=== PATIENT | male | born 1980 | race Caucasian/White ===

== ENCOUNTER 2017-07-20 01:19 | Emergency (ER) | payer SELFPAY ==
[~2017-07-20] VITALS: Ht 177.8 cm; Wt 82.6 kg
[~2017-07-20 01:19] MED LIST: HYDROCODON-ACE1 EA15 ORAL; IBUPROFEN600 MG ORAL; NKM
[2017-07-20 01:35] VITALS: BP 150/95
[2017-07-20] MEDS ORDERED: Tetanus/Diptheria/Pertussis Vaccine 0.5ml Syr IM ONE (02:00)
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
[2017-07-20] MEDS ORDERED: IBUPROFEN600 MG ORAL (02:48)
[2017-07-20 02:59] VITALS: BP 145/75
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
== END 2017-07-20 02:59 | disposition home or self-care (01) ==
LOC: EMR 02:47
DX: S01.21XA Laceration without foreign body of nose, initial encounter (principal); S02.2XXA Fracture of nasal bones, initial encounter for closed fracture; Z23 Encounter for immunization; Y04.2XXA Assault by strike against or bumped into by another person, initial encounter
CPT/HCPCS: 70486; 90471; 90715; 99284